=== PATIENT | female | born 1965 | race Caucasian/White ===

== ENCOUNTER 2017-04-08 13:19 | Day surgery (SDC) | payer BC ==
[2017-04-08] MEDS ORDERED: FENTAnyl 50 MCG/ML VIAL (17:08)
[2017-04-08] MEDS ORDERED: MIDAZOLAM 1 MG/ML 2 ML INJ ×3 (17:09)
== END 2017-04-08 17:19 | disposition home or self-care (01) ==
LOC: GIL 13:19
DX: Z12.11 Encounter for screening for malignant neoplasm of colon (principal); K64.8 Other hemorrhoids; K29.70 Gastritis, unspecified, without bleeding; Z80.0 Family history of malignant neoplasm of digestive organs
CPT/HCPCS: 43239; 84703; 87081